=== PATIENT | female | born 1945 | race Asian ===

== ENCOUNTER 2017-07-19 06:54 | Day surgery (SDC) | payer OTHER ==
[~2017-07-19] VITALS: Ht 154.9 cm; Wt 53.2 kg
[~2017-07-19 06:54] MED LIST: ALEN70TA48 PO; BUDE10.2 IH; CALC-1009 PO; GABA-531 PO; GLIP5 PO; HYDR25TA PO; LOSA25TA21 PO; METF500T7 PO; OMEP20 PO
[2017-07-19] MEDS ORDERED: BENZOCAINE 20% 50 MCG/SPRAY 57 GM TP ONE (06:55)
[2017-07-19] MEDS ORDERED: LIDOCAINE HCL 4% 50 ML SOLUTION TP ONE (06:55)
[2017-07-19] MEDS ORDERED: LIDOCAINE HCL 2% 30 ML JELLY TP ONE (06:55)
[2017-07-19] MEDS ORDERED: ALBUTEROL SULFATE 2.5 MG/0.5 ML NEB SOLUTION NEB ONE (06:55)
[2017-07-19] MEDS ORDERED: SODIUM CHLORIDE 0.9% 1,000 ML IV ONE ×2 (07:00→07:16)
[2017-07-19] MEDS ORDERED: MIDAZOLAM HCL 2 MG/2 ML VIAL ONE (08:13)
[2017-07-19] MEDS ORDERED: FentaNYL CITRATE-PF 100 MCG/2 ML VIAL ONE (08:14)
[2017-07-19 08:17] LABS: GLUCOMETER DEV NAME(LOC) SDS 5; GLUCOSE,POINT OF CARE 86 MG/DL (70-110)
[2017-07-19] MEDS ORDERED: MethylPREDNISolone SOD SUCC 125 MG/2 ML VIAL IVP ONE (09:15)
[2017-07-19] MEDS ORDERED: MethylPREDNISolone SOD SUCC 125 MG/2 ML VIAL ONE (09:42)
[2017-07-19] MEDS ORDERED: OXYGEN THERAPY IH SCH (20:00)
== END 2017-07-19 11:20 | disposition home or self-care (01) ==
LOC: SURGERY 06:54
PROVIDERS: ATTEND Internal Medicine Critical Care Medicine
DX: J38.4 Edema of larynx (principal); B37.0 Candidal stomatitis; J84.111 Idiopathic interstitial pneumonia, not otherwise specified; I10 Essential (primary) hypertension; E11.9 Type 2 diabetes mellitus without complications; M19.90 Unspecified osteoarthritis, unspecified site; Z79.84 Long term (current) use of oral hypoglycemic drugs; Z98.890 Other specified postprocedural states; Z79.899 Other long term (current) drug therapy
CPT/HCPCS: 31623; 31624; 71045; 82962; 87015; 87070; 87205; 87220; 88108; 88312; J2250; J2930; J3010; J7030